=== PATIENT | male | born 1960 | race Asian ===

== ENCOUNTER 2019-05-15 18:32 | Emergency (ER) | payer BC ==
[~2019-05-15] VITALS: Ht 177.8 cm; Wt 78.9 kg
[2019-05-15 18:40] VITALS: Ht 177.8 cm; Wt 78.9 kg
[2019-05-15 20:22] VITALS: BP 136/78
== END 2019-05-15 20:22 | disposition home or self-care (01) ==
LOC: ED 18:32
DX: H54.62 Unqualified visual loss, left eye, normal vision right eye (principal); H33.20 Serous retinal detachment, unspecified eye; E78.00 Pure hypercholesterolemia, unspecified